=== PATIENT | female | born 1955 | race Caucasian/White ===

== ENCOUNTER 2016-08-06 09:09 | Outpatient (CLI) | payer OTHER ==
[~2016-08-06 09:09] MED LIST: DOCUSATE SODIU100 MG PO; FERROUS SULFAT324 M1 PO; HYDROXYZINE PAM25 MG PO; LEVOTHYROXINE50 MCG PO; MULTI VIT PO; OXYCODONE/ACETA1 TA1 PO; VITAMIN C500 M1 PO; VITAMIN D PO; WOMENS PO
--- NOTE | 2016-08-06 10:34 | DIAGNOSTIC IMAGING REPORT ---
PROCEDURE: DEXA BONE DENSITY STUDY CLINICAL INDICATION: SCREENING COMPARISON: None. FINDINGS: LUMBAR SPINE: Bone mineral density 1.051 g/cm2, T score 0.0 normal LEFT HIP: Bone mineral density 0.958 g/cm2, T score 0.1 normal LEFT FEMORAL NECK: Bone mineral density 0.726 g/cm2, T score -1.1 osteopenia FRACTURE RISK CALCULATION ( when applicable): 10-year fracture risk of a major osteoporotic fracture 12% and of a hip fracture 0.8% (T score greater or equal to -1.0 to: NORMAL) (T score from -1.1 to -2.4: OSTEOPENIA) (T score ess than or equal to -2.5: OSTEOPOROSIS) IMPRESSION: 1. Femoral neck osteopenia with a 10-year fracture risk of 12% and a hip fracture risk of 0.8%
--- NOTE | 2016-08-06 10:41 | DIAGNOSTIC IMAGING REPORT ---
PROCEDURE: MG BILATERAL SCREENING W/CAD INDICATION: SCREENING TECHNIQUE: Bilateral CC and MLO digital views. COMPARISON: Compared to 05/16/2011 and 05/17/2007. FINDINGS: Computer-aided detection applied. Mildly dense with a few dystrophic calcifications. No change. IMPRESSION: 1. Negative mammogram. RESULT CODE: 1- Negative. A. A negative report should not delay biopsy if a dominant or clinically suspicious mass is present. 10-15% of cancers are not identified by x-ray. B. A negative report may reinforce clinical impression. C. Adenosis and dense breasts may obscure an underlying neoplasm. D. False positive reports average 6-10%. E.. A yearly screening mammogram is recommended. A reminder letter will be scheduled.
== END 2016-08-06 23:00 ==
LOC: MAM SRH 09:09
DX: Z12.31 Encounter for screening mammogram for malignant neoplasm of breast (principal); M85.89 Other specified disorders of bone density and structure, multiple sites

== ENCOUNTER → 2016-09-01 | Outpatient (CLI) | payer OTHER ==
--- NOTE | 2016-09-01 12:32 | DIAGNOSTIC IMAGING REPORT ---
PROCEDURE: XR BARIUM SWALLOW INDICATION: Upper esophageal dysphagia. TECHNIQUE: Double contrast study. Fluoroscopy time, 3.7 minutes; 2107.68 mGy. 63 fluoroscopic images (including cine fluoroscopy of the esophagus). COMPARISON: Comparison is made to CT abdomen and pelvis on 01/27/2016 and CTA thorax on 09/24/2015. FINDINGS: Pharyngoesophagus is normal. No constricting or polypoid lesions There are mild degenerative changes of the cervical spine. There are mild tertiary contractions of the thoracic esophagus. The thoracic esophagus is otherwise normal. No constricting or polypoid lesions. No evidence of reflux IMPRESSION: 1. Normal pharyngoesophagus. 2. 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 Otherwise normal esophagram. 3. No evidence of reflux. 4. Findings discussed with the patient.
== END ==
LOC: XR SRH 10:02
DX: R13.10 Dysphagia, unspecified (principal)